=== PATIENT | male | born 1970 | race Caucasian/White ===

== ENCOUNTER 2021-04-14 17:38 | Inpatient (IN) | payer MEDICARE, MEDICAID, SELFPAY ==
[2021-04-14 18:00] VITALS: BP 141/98; PULSE 86; RESP 16; TEMP 36.2; O2SAT 97
[2021-04-14 20:12] VITALS: BMI 26.6
[2021-04-14] MEDS: Gabapentin 300 MG CAPSULE PO (20:21)
[2021-04-14] MEDS: LORazepam 1 MG TABLET 2 MG PO (20:21)
--- NOTE | 2021-04-14 21:12 | PC.ADMIT ---
PT is a 51 y.o. malian speaking male admitted to the unit on a conditional voluntary basis from [facility] ED. PT arrived to [facility] after contemplating suicide by way of gun. PT was recently discharged from [facility] for unknown reasons, began to binge drink and doesn't remember how he got to [facility]. PT is an everyday drinker of 10+ beverages daily of beer and vodka. PT uses marijuana. TOX screen (+) for marijuana, neg for others, COVID swab (-). PT recent suicidal thoughts stem from recent homelessness and alcoholism and minimal support system. PT denies SI/HI at this time as well as AH/VH. Legal paperwork signed. VS stable @ this time, no acute distress, respirations even and unlabored. Awaiting orders.
[2021-04-14] MEDS: LORazepam 1 MG TABLET PO (22:56)
[2021-04-14] MEDS: Topiramate 100 MG TABLET 200 MG PO (22:56)
[2021-04-14] MEDS: Nicotine Polacrilex 2 MG GUM 4 MG BUCCAL (22:57)
[2021-04-15 06:00] VITALS: BP 119/80; PULSE 53; RESP 16; TEMP 35.9; O2SAT 99
[2021-04-15] MEDS: Lacosamide 100 MG TABLET 200 MG PO ×2 (09:04→20:39)
[2021-04-15] MEDS: Gabapentin 300 MG CAPSULE PO ×3 (09:04→20:39)
[2021-04-15] MEDS: LORazepam 1 MG TABLET PO ×3 (09:04→20:39)
[2021-04-15] MEDS: Topiramate 100 MG TABLET 200 MG PO ×2 (09:05→20:39)
[2021-04-15] MEDS: Escitalopram Oxalate 5 MG TABLET PO (09:05)
[2021-04-15] MEDS: Omeprazole 40 MG CAPSULE.DR PO (09:05)
[2021-04-15] MEDS: Acetaminophen 325 MG TABLET 650 MG PO (10:23)
--- NOTE | 2021-04-15 10:43 | HO.PSYADMNOT ---
HPI Chief Complaint: depressive disorder Sources of Information: patient interviewed, chart reviewed and crisis/core team assessment reviewed HPI Subjective Notes: Padilla Warning and Conditional Voluntary Narrative: Pt is a 51yo male with hx of deperssion, anxiety and alcohol dependence who presents for worsening depression and in a moment of hopelessness, suicidal ideation. Pt reports depression but says SI has resolved. He reports no hx of self harm. Patient reports that for the past several months he has been quite depressed stuck in this cycle of alcohol addiction. He recently went to detox at [facility] and was there for a week; however 1 week ago he got into a verbal altercation with another peer and was asked to leave. The past week patient has been drinking alcohol consistently, at least 15 or more drinks per day which is his usual. He was feeling guilty and embarrassed for his chronic alcohol abuse and ashamed since his father was disappointed in him. Patient said in a moment of despair he had the thought that he does not want to be here anymore; he had his medications Hand[facility] and looked at them and briefly thought about overdosing, however he did not attempt and says he was never really close to doing so. Patient says the comment about the gun and shooting himself was just off a cough and Daniels and just 1 of those things you say. He denies any thoughts at all about taking his life. 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 Currently patient feels depressed. He says he loves drinking and does not want to quit, but he knows that he has to as it is taking an extreme toll on his body and he is getting tired of being homeless and bouncing around. Patient says that he has been taking his medications regularly including Lamictal and wants to continue with them. He agrees to increasing escitalopram to 10 mg. Patient said naltrexone has not been helpful at all and curbing his cravings. Boiler Mechanic discussed disulfiram with patient who is ambivalent but will think about it. Past Psychiatric History: Patient said he was psychiatrically admitted about 6-8 years ago but is not clear on the circumstances Medical Evaluation Reviewed: Hospitalist Abdelrahman Pending [facility] Medical History (Updated 04/15/21 @ 17:24 by Philip Galarza MD) Alcohol dependence Chronic post-traumatic stress disorder (PTSD) GERD (gastroesophageal reflux disease) MDD (major depressive disorder), recurrent episode, moderate MDD (major depressive disorder), recurrent episode, severe Seizure disorder Family History: Mother substance abuse history Mother with antisocial tendencies; sold both cocaine and cannabis and talk her son to do so Social History: Patient graduated high school; has a degree from a [employer] school and has worked in the industry in the past. Patient is closest to his father who is supportive Substance History: History of cocaine and alcohol abuse starting back in his teenage years. Patient currently only abuses alcohol and no longer uses cocaine. He says he drinks starting as soon as he wakes up in the morning and drinks 15 or more drinks per day; had history of seizure withdrawals Trauma History: Patient has history of trauma; did not discuss Diagnostics Vital Signs (24Hr): Vital Signs - 24 hr 04/14/21 18:00 04/15/21 06:00 Temperature 97.1 F 96.6 F L Pulse Rate 86 53 Respiratory Rate 16 16 Blood Pressure 141/98 H 119/80 Pulse Oximetry 97 99 Body Mass Index 26.6 Labs Results: 04/15/21 15:51 04/15/21 15:51 Meds/Allergies Meds Home Medications Acetaminophen (Acetaminophen 325 Mg Tablet) 650 mg PO Q6H PRN PRN Reason: Headache/Pain Mild Scale (1-3) Last Admin: 04/15/21 10:23 Dose: 650 mg Documented by: Al Hydroxide/Mg Hydroxide (Magnesium Hydrox/Alum Hydrox 30 Ml Oral.Susp) 30 ml PO Q6H PRN PRN Reason: Heartburn/Nausea Escitalopram Oxalate (Escitalopram Oxalate 10 Mg Tablet) 10 mg PO DAILY [facility] Folic Acid (Folic Acid 1 Mg Tablet) 1 mg PO DAILY [facility] Gabapentin (Gabapentin 300 Mg Capsule) 300 mg PO TID [facility] Last Admin: 04/15/21 16:21 Dose: 300 mg Documented by: Lacosamide (Lacosamide 100 Mg Tablet) 200 mg PO BID [facility] Last Admin: 04/15/21 09:04 Dose: 200 mg Documented by: Lamotrigine (Lamotrigine 100 Mg Tablet) 200 mg PO DAILY [facility] Lorazepam (Lorazepam 1 Mg Tablet) 1 mg PO TID [facility] Last Admin: 04/15/21 16:20 Dose: 1 mg Documented by: Lorazepam (Lorazepam 1 Mg Tablet) 2 mg PO Q2H PRN PRN Reason: mod to severe etoh withdrawal Last Admin: 04/15/21 13:58 Dose: 2 mg Documented by: Lorazepam (Lorazepam 1 Mg Tablet) 1 mg PO Q2H PRN PRN Reason: mild to mod etoh withdrawal Magnesium Hydroxide (Milk Of Magnesia 30 Ml Oral.Susp) 30 ml PO DAILY PRN PRN Reason: Constipation Nicotine (Nicotine 21 Mg Patch.Td24) 21 mg TRANSDERMA DAILY PRN PRN Reason: smoking cessation Nicotine Polacrilex (Nicotine Polacrilex 2 Mg Gum) 4 mg BUCCAL Q2H PRN PRN Reason: Nicotine Cravings Last Admin: 04/14/21 22:57 Dose: 4 mg Documented by: Omeprazole (Omeprazole 40 Mg Capsule.Dr) 40 mg PO DAILY@0630 [facility] Last Admin: 04/15/21 09:05 Dose: 40 mg Documented by: Thiamine HCl (Thiamine Hcl 200 Mg/2 Ml Vial) 100 mg IM DAILY [facility] Stop: 04/17/21 23:59 Thiamine HCl (Thiamine Hcl 100 Mg Tablet) 100 mg PO DAILY [facility] Topiramate (Topiramate 100 Mg Tablet) 200 mg PO BID [facility] Last Admin: 04/15/21 09:05 Dose: 200 mg Documented by: Trazodone HCl (Trazodone Hcl 50 Mg Tablet) 50 mg PO BEDTIME PRN PRN Reason: Insomnia Allergies Allergies Allergy/AdvReac Type Severity Reaction Status Date / Time levetiracetam [From [facility]] AdvReac Severe psychosis Unverified 04/14/21 20:47 Mental Status Exam Mental Status Exam Narrative: Pt is alert and oriented; behavior is cooperative, friendly and calm; patient is not in distress; dressed in hospital gown, scruffy and unkempt; mood is described as depressed and affect congruent; eye contact downcast; Speech is verbose, but normal rate, volume and prosody and not pressured; psychomotor retardation present; thought process is quite circumstantial but otherwise goal oriented; Thought content is on telling his life store; pt verbose but pertinent to relevant topics and without any delusional content, paranoid ideations or grandiosity; denies any SI/HI. There is no evidence of perceptual disturbance. Patients insight and judgment appear impaired. Assessment & Plan Assessment & Plan (1) Alcohol dependence: Status: Acute Code(s): F10.20 - Alcohol dependence, uncomplicated (2) MDD (major depressive disorder), recurrent episode, moderate: Status: Acute Code(s): F33.1 - Major depressive disorder, recurrent, moderate (3) Seizure disorder: Status: Acute Code(s): G40.909 - Epilepsy, unspecified, not intractable, without status epilepticus Assessment and Plan: IMPRESSION: Pt is a 51yo male with hx of depression, anxiety and alcohol dependence who presents for worsening depression and in a moment of hopelessness, suicidal ideation. Pt reports depression but says SI has resolved. He reports no hx of self harm. Patient has been drinking daily for decades with 1 or 2 weeks of sobriety in between long periods of abuse. Patient has history of childhood trauma that was not discussed; patient reports also being bullied in high school. Patient's mother had antisocial traits and ran a fairly large cocaine and cannabis business in the and taught her son to perk here and distribute these drugs. Could not get adequate history to assess for bipolar disorder given long history of daily substance abuse. Patient also did not discuss history of trauma and so it is unclear if he has symptoms of PTSD. Patient currently reports depression with diminished interest, guilty feelings, low energy, poor concentration and brief SI. That said he does not see himself as 1 who is overly depressed. Will treat patient for alcohol withdrawal. Patient is considering disulfiram; will not restart naltrexone since patient says it is not very helpful. He was also not taking atorvastatin. Will however continue both anti epileptic medications as patient said he was taking them regularly. PLAN: Patient on CV Q 15 minutes checks for safety Patient on CIWA with Ativan a gabapentin taper Will increase escitalopram to 10 mg for ongoing depression/anxiety Will continue Lamictal which patient says he takes regularly for seizure disorder; internal communications writer reviewed risks/side effects of this medication to which patient understood A continue other home meds for now Reason for continued inpatient stay Substantial Risk for: rapid decompensation
[2021-04-15] MEDS: LORazepam 1 MG TABLET 2 MG PO (13:58)
[2021-04-15 15:58] LABS: MANUAL DIFF FLAG NO
[2021-04-15 16:01] LABS: Eosinophils Absolute Auto 0.1 X10*3/uL (0.0-0.4); Eosinophils Percent Auto 3.3 % (0-4); Hematocrit 38.1 % (42-52); Hemoglobin 12.8 g/dl (14.0-18.0); Imm Gran Abs Auto 0.01 X10*3/uL (0.00-0.03); Imm Gran Pct Auto 0.3 % (0.0-0.4); Lymphocytes Absolute Auto 0.8 X10*3/uL (1.2-4.9); Lymphocytes Percent Auto 20.4 % (20-40); Mean Corpuscular HGB Conc 33.6 g/dl (31.0-36.0); Mean Corpuscular Hemoglobin 32.1 pg (27.0-33.0); Mean Corpuscular Volume 95.5 fL (80-98); Monocytes Absolute Auto 0.6 X10*3/uL (0.1-1.2); Monocytes Percent Auto 15.8 % (2-11); Neutrophils Absolute Auto 2.3 X10*3/uL (2.0-8.3); Neutrophils Percent Auto 59.2 % (45-73); Platelet Count 294 X10*3/uL (160-400); Red Blood Count 3.99 X10*6/uL (4.60-5.80); Red Cell Distribution Width 14.2 % (11.0-16.0); White Blood Count 3.9 X10*3/uL (4.8-10.8)
[2021-04-15 16:18] LABS: Blood Urea Nitrogen 15 mg/dL (9-16); Creatinine Clr Calc Pharmacy 79.9; Estimated Glomerular Filt Rate > 60
[2021-04-15 16:20] LABS: Alanine Aminotransferase 10 U/L (0-40); Albumin Level 4.1 g/dL (3.5-5.0); Alkaline Phosphatase 64 U/L (39-117); Anion Gap 12 (12-20); Aspartate Amino Transferase 15 U/L (5-37); Bilirubin Direct < 0.2 mg/dL (0.0-0.5); Bilirubin Total 0.4 mg/dL (0.0-1.0); Carbon Dioxide 21 mmol/L (22-29); Chloride 109 mmol/L (96-108); Potassium 4.1 mmol/L (3.3-5.1); Sodium 138 mmol/L (135-145)
[2021-04-15] MEDS: lamoTRIgine 100 MG TABLET 200 MG PO (16:20)
[2021-04-15] MEDS: Thiamine HCL 200 MG/2 ML VIAL 100 MG IM (16:20)
[2021-04-15] MEDS: Folic Acid 1 MG TABLET PO (16:21)
--- NOTE | 2021-04-15 16:29 | HO.HSGERICON ---
History of Present Illness Data of Consult Service Date: 04/15/21 Primary Care Provider: Alesia Lundberg NP HPI Reason for consult: GERD, seizure disorder 51M admitted to inpatient psychiatry for depression with suicidal ideation. Patient has history of seizure disorder, questionable of only due to alcohol withdrawal or independent seizure disorder. He is currently on Vimpat, lamotrigine, Topamax. He also has a history of reflux treated with omeprazole. Review of Systems Review of Systems: Yes all other systems are reviewed and are negative Cardiovascular: Cardiovascular: Reports no additional cardiovascular complaints Respiratory: Respiratory: Reports no additional respiratory complaints [facility] Medical History (Updated 04/15/21 @ 16:32 by James Taylor MD) Alcohol dependence Chronic post-traumatic stress disorder (PTSD) GERD (gastroesophageal reflux disease) MDD (major depressive disorder), recurrent episode, severe Seizure disorder Pertinent family history: father, mother denies cad Social History Housing: Homeless Do you presently have visiting nurse or other home services: No Patient Tobacco Use Status: Current everyday Tobacco user Tobacco use type: Cigarette Cigarettes Per Day: 1 Years Smoked: 30 Smoked in Last 30 Days: Yes e-Cigarette/Vaping Use: Never Used Patient Interested in Nicotine Replacement: Yes Patient Given Instructions on How to Stop Smoking: Yes Date Education Initiated: 04/14/21 Second Hand Smoke Exposure: Yes Use of substances other than those prescribed or required for medical reasons: Yes Substance Use Type: Marijuana Substance Use Frequency: Weekly Last Used Substance: Hours (ago) Currently Displaying Signs/Symptoms of Drug Intoxication Withdrawal: No Any prior treatment program specific to substance use: No Have you been hit, kicked, punched, or otherwise hurt by someone within the past year? If so, by whom?: No Do you feel safe in your current relationship?: No Is there a partner from a previous relationship who is making you feel unsafe now?: No Are you made to feel afraid or neglected: No Advance Directives: No Advance Directives Information Provided: No Advance Directives on File: No Do you have thoughts of harming others: None Do you have a plan to hurt others: No Plan Recently lost weight without trying: No Nutrition Risks: No Nutritional Risk Poor oral hygiene: Yes service: No Sexual orientation: Straight/Heterosexual Meds Allergies Allergy/AdvReac Type Severity Reaction Status Date / Time levetiracetam [From [facility]] AdvReac Severe psychosis Unverified 04/14/21 20:47 Active Medications: Current Medications Acetaminophen (Acetaminophen 325 Mg Tablet) 650 mg PO Q6H PRN PRN Reason: Headache/Pain Mild Scale (1-3) Last Admin: 04/15/21 10:23 Dose: 650 mg Documented by: Al Hydroxide/Mg Hydroxide (Magnesium Hydrox/Alum Hydrox 30 Ml Oral.Susp) 30 ml PO Q6H PRN PRN Reason: Heartburn/Nausea Escitalopram Oxalate (Escitalopram Oxalate 10 Mg Tablet) 10 mg PO DAILY [facility] Folic Acid (Folic Acid 1 Mg Tablet) 1 mg PO DAILY [facility] Gabapentin (Gabapentin 300 Mg Capsule) 300 mg PO TID [facility] Last Admin: 04/15/21 16:21 Dose: 300 mg Documented by: Lacosamide (Lacosamide 100 Mg Tablet) 200 mg PO BID [facility] Last Admin: 04/15/21 09:04 Dose: 200 mg Documented by: Lamotrigine (Lamotrigine 100 Mg Tablet) 200 mg PO DAILY [facility] Lorazepam (Lorazepam 1 Mg Tablet) 1 mg PO TID [facility] Last Admin: 04/15/21 16:20 Dose: 1 mg Documented by: Lorazepam (Lorazepam 1 Mg Tablet) 2 mg PO Q2H PRN PRN Reason: mod to severe etoh withdrawal Last Admin: 04/15/21 13:58 Dose: 2 mg Documented by: Lorazepam (Lorazepam 1 Mg Tablet) 1 mg PO Q2H PRN PRN Reason: mild to mod etoh withdrawal Magnesium Hydroxide (Milk Of Magnesia 30 Ml Oral.Susp) 30 ml PO DAILY PRN PRN Reason: Constipation Nicotine (Nicotine 21 Mg Patch.Td24) 21 mg TRANSDERMA DAILY PRN PRN Reason: smoking cessation Nicotine Polacrilex (Nicotine Polacrilex 2 Mg Gum) 4 mg BUCCAL Q2H PRN PRN Reason: Nicotine Cravings Last Admin: 04/14/21 22:57 Dose: 4 mg Documented by: Omeprazole (Omeprazole 40 Mg Capsule.Dr) 40 mg PO DAILY@0630 [facility] Last Admin: 04/15/21 09:05 Dose: 40 mg Documented by: Thiamine HCl (Thiamine Hcl 200 Mg/2 Ml Vial) 100 mg IM DAILY [facility] Stop: 04/17/21 23:59 Thiamine HCl (Thiamine Hcl 100 Mg Tablet) 100 mg PO DAILY [facility] Topiramate (Topiramate 100 Mg Tablet) 200 mg PO BID [facility] Last Admin: 04/15/21 09:05 Dose: 200 mg Documented by: Trazodone HCl (Trazodone Hcl 50 Mg Tablet) 50 mg PO BEDTIME PRN PRN Reason: Insomnia Home Medications Medication Instructions Recorded Confirmed Last Taken Type escitalopram oxalate 5 mg tablet 5 mg PO DAILY 04/14/21 04/14/21 Unknown History lacosamide 200 mg tablet (Vimpat) 200 mg PO BID 04/14/21 04/14/21 Unknown History lamotrigine 200 mg tablet 1 tab PO BID 04/14/21 04/14/21 Unknown History omeprazole 40 mg capsule,delayed 40 mg PO DAILY 04/14/21 04/14/21 Unknown History release topiramate 200 mg tablet 1 tab PO BID 04/14/21 04/14/21 Unknown History Results Labs CBC and Chem 7: 04/15/21 15:51 04/15/21 15:51 Labs: Laboratory Results - last 24 hr 04/15/21 04/15/21 04/15/21 15:50 15:51 15:51 MCV 95.5 MCH 32.1 MCHC 33.6 RDW 14.2 Plt Count 294 MPV 9.0 L Immature Gran % (Auto) 0.3 Neut % (Auto) 59.2 Lymph % (Auto) 20.4 [place] % (Auto) 15.8 H Eos % (Auto) 3.3 Baso % (Auto) 1.0 Lymph # (Auto) 0.8 L [place] # (Auto) 0.6 Eos # (Auto) 0.1 Baso # (Auto) 0.0 Abs Immat Gran (auto) 0.01 Absolute Neuts (auto) 2.3 Absolute Nucleated RBC 0.000 Nucleated RBC % (auto) 0.0 Anion Gap 12 Estim Creat Clear Calc 79.9 Estimated GFR > 60 Total Bilirubin 0.4 Direct Bilirubin < 0.2 AST 15 ALT 10 Alkaline Phosphatase 64 Total Protein 7.0 Albumin 4.1 Assessment and Plan (1) GERD (gastroesophageal reflux disease): Status: Acute (2) Seizure disorder: Status: Acute 51M admitted to inpatient psychiatry for depression Seizure disorder Question independent versus due to her withdrawal, continue home antiepileptics Reflux Continue omeprazole Alcohol dependence Monitor for withdrawal Physical Exam Vital Signs: Last Vital Signs Temp 96.6 F L 04/15/21 06:00 Pulse 53 04/15/21 06:00 Resp 16 04/15/21 06:00 BP 119/80 04/15/21 06:00 Pulse Ox 99 04/15/21 06:00 Body Mass Index 26.6 General: AO X 3, no acute distress Resp: CTA bilateral, no accessory muscles used CVS: S1,S2,RRR GI: soft, non tender, non distended Neuro: motor grossly intact, alert Neuro Cranial nerves: Yes CN's II-XII intact bilaterally
[2021-04-15 18:00] VITALS: BP 138/78; PULSE 80; RESP 18; TEMP 36.7; O2SAT 99
[2021-04-16] MEDS: LORazepam 1 MG TABLET 2 MG PO ×2 (01:40→16:28)
[2021-04-16] MEDS: traZODone HCL 50 MG TABLET PO (01:40)
[2021-04-16] MEDS: Omeprazole 40 MG CAPSULE.DR PO (05:47)
[2021-04-16] MEDS: Gabapentin 300 MG CAPSULE PO ×3 (08:53→20:43)
[2021-04-16] MEDS: lamoTRIgine 100 MG TABLET 200 MG PO (08:54)
[2021-04-16] MEDS: Topiramate 100 MG TABLET 200 MG PO ×2 (08:56→20:43)
[2021-04-16] MEDS: Escitalopram Oxalate 10 MG TABLET PO (08:56)
[2021-04-16] MEDS: Folic Acid 1 MG TABLET PO (08:56)
[2021-04-16] MEDS: LORazepam 1 MG TABLET PO ×4 (08:56→20:43)
[2021-04-16] MEDS: Thiamine HCL 200 MG/2 ML VIAL 100 MG IM (08:57)
[2021-04-16] MEDS: Lacosamide 100 MG TABLET 200 MG PO ×2 (09:01→20:43)
--- NOTE | 2021-04-16 10:15 | HO.PSYCHPN ---
Subjective Subjective Date of Service: 04/16/21 Reason For Visit: depressive disorder Interim History: pt seen on 04/16 pt reports his mood is better; no SI. He says he's still feeling some w/drawal but that medication (ativan/gabapentin working). Pt says eating and sleeping well. He is still ambivalent about Disulfiram. Pt talks about love of guitare and wishes there was one on the unit. 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 Pt is looking looking for places to stay on discharge. Pt says he wrote a song and shares a few verses with life underwriter. Mental Status Exam Mental Status Exam Narrative: Pt is alert and oriented; behavior is cooperative, friendly and calm; patient is not in distress; dressed in hospital gown, scruffy and unkempt; mood is described as better and affect congruent, bright; eye contact appropriate; Speech is verbose, but normal rate, volume and prosody and not pressured; no psychomotor retardation; thought process is quite circumstantial but otherwise goal oriented; Thought content is on telling stories; pt verbose but pertinent to relevant topics and without any delusional content, paranoid ideations or grandiosity; denies any SI/HI. There is no evidence of perceptual disturbance.? Patients insight and judgment appear intact. Diagnostics Vital Signs (24Hr): Vital Signs - 24 hr 04/15/21 18:00 Temperature 98.0 F Pulse Rate 80 Respiratory Rate 18 Blood Pressure 138/78 Pulse Oximetry 99 Body Mass Index 26.6 Labs Results: 04/15/21 15:51 04/15/21 15:51 Labs: Laboratory Results - last 48 hr 04/15/21 04/15/21 04/15/21 15:50 15:51 15:51 WBC 3.9 L RBC 3.99 L Hgb 12.8 L Hct 38.1 L MCV 95.5 MCH 32.1 MCHC 33.6 RDW 14.2 Plt Count 294 MPV 9.0 L Immature Gran % (Auto) 0.3 Neut % (Auto) 59.2 Lymph % (Auto) 20.4 [place] % (Auto) 15.8 H Eos % (Auto) 3.3 Baso % (Auto) 1.0 Lymph # (Auto) 0.8 L [place] # (Auto) 0.6 Eos # (Auto) 0.1 Baso # (Auto) 0.0 Abs Immat Gran (auto) 0.01 Absolute Neuts (auto) 2.3 Absolute Nucleated RBC 0.000 Nucleated RBC % (auto) 0.0 Sodium 138 Potassium 4.1 Chloride 109 H Carbon Dioxide 21 L Anion Gap 12 BUN 15 Creatinine 1.07 Estim Creat Clear Calc 79.9 Estimated GFR > 60 Total Bilirubin 0.4 Direct Bilirubin < 0.2 AST 15 ALT 10 Alkaline Phosphatase 64 Total Protein 7.0 Albumin 4.1 Medications Medications Current Medications Acetaminophen (Acetaminophen 325 Mg Tablet) 650 mg PO Q6H PRN PRN Reason: Headache/Pain Mild Scale (1-3) Last Admin: 04/15/21 10:23 Dose: 650 mg Documented by: Al Hydroxide/Mg Hydroxide (Magnesium Hydrox/Alum Hydrox 30 Ml Oral.Susp) 30 ml PO Q6H PRN PRN Reason: Heartburn/Nausea Escitalopram Oxalate (Escitalopram Oxalate 10 Mg Tablet) 10 mg PO DAILY [facility] Last Admin: 04/16/21 08:56 Dose: 10 mg Documented by: Folic Acid (Folic Acid 1 Mg Tablet) 1 mg PO DAILY [facility] Last Admin: 04/16/21 08:56 Dose: 1 mg Documented by: Gabapentin (Gabapentin 300 Mg Capsule) 300 mg PO TID [facility] Last Admin: 04/16/21 08:53 Dose: 300 mg Documented by: Lacosamide (Lacosamide 100 Mg Tablet) 200 mg PO BID [facility] Last Admin: 04/16/21 09:01 Dose: 200 mg Documented by: Lamotrigine (Lamotrigine 100 Mg Tablet) 200 mg PO DAILY [facility] Last Admin: 04/16/21 08:54 Dose: 200 mg Documented by: Lorazepam (Lorazepam 1 Mg Tablet) 1 mg PO TID [facility] Last Admin: 04/16/21 08:56 Dose: 1 mg Documented by: Lorazepam (Lorazepam 1 Mg Tablet) 2 mg PO Q2H PRN PRN Reason: mod to severe etoh withdrawal Last Admin: 04/16/21 01:40 Dose: 2 mg Documented by: Lorazepam (Lorazepam 1 Mg Tablet) 1 mg PO Q2H PRN PRN Reason: mild to mod etoh withdrawal Magnesium Hydroxide (Milk Of Magnesia 30 Ml Oral.Susp) 30 ml PO DAILY PRN PRN Reason: Constipation Nicotine (Nicotine 21 Mg Patch.Td24) 21 mg TRANSDERMA DAILY PRN PRN Reason: smoking cessation Nicotine Polacrilex (Nicotine Polacrilex 2 Mg Gum) 4 mg BUCCAL Q2H PRN PRN Reason: Nicotine Cravings Last Admin: 04/14/21 22:57 Dose: 4 mg Documented by: Omeprazole (Omeprazole 40 Mg Capsule.) 40 mg PO DAILY@0630 [facility] Last Admin: 04/16/21 05:47 Dose: 40 mg Documented by: Thiamine HCl (Thiamine Hcl 200 Mg/2 Ml Vial) 100 mg IM DAILY [facility] Stop: 04/17/21 23:59 Last Admin: 04/16/21 08:57 Dose: 100 mg Documented by: Thiamine HCl (Thiamine Hcl 100 Mg Tablet) 100 mg PO DAILY [facility] Topiramate (Topiramate 100 Mg Tablet) 200 mg PO BID [facility] Last Admin: 04/16/21 08:56 Dose: 200 mg Documented by: Trazodone HCl (Trazodone Hcl 50 Mg Tablet) 50 mg PO BEDTIME PRN PRN Reason: Insomnia Last Admin: 04/16/21 01:40 Dose: 50 mg Documented by: Allergies Allergies Allergy/AdvReac Type Severity Reaction Status Date / Time levetiracetam [From [facility]] AdvReac Severe psychosis Unverified 04/14/21 20:47 Assessment & Plan Assessment & Plan (1) Alcohol dependence: Status: Acute Code(s): F10.20 - Alcohol dependence, uncomplicated (2) MDD (major depressive disorder), recurrent episode, moderate: Status: Acute Code(s): F33.1 - Major depressive disorder, recurrent, moderate (3) Seizure disorder: Status: Chronic Code(s): G40.909 - Epilepsy, unspecified, not intractable, without status epilepticus Assessment and Plan: IMPRESSION: Pt is a 51yo male with hx of depression, anxiety and alcohol dependence who presents for worsening depression and in a moment of hopelessness, suicidal ideation. Pt reports depression but says SI has resolved. He reports no hx of self harm. Patient has been drinking daily for decades with 1 or 2 weeks of sobriety in between long periods of abuse. Patient has history of childhood trauma that was not discussed; patient reports also being bullied in high school. Patient's mother had antisocial traits and ran a fairly large cocaine and cannabis business in the and taught her son to perk here and distribute these drugs. Could not get adequate history to assess for bipolar disorder given long history of daily substance abuse. Patient also did not discuss history of trauma and so it is unclear if he has symptoms of PTSD. Patient currently reports depression with diminished interest, guilty feelings, low energy, poor concentration and brief SI. That said he does not see himself as 1 who is overly depressed. Will treat patient for alcohol withdrawal. Patient is considering disulfiram; will not restart naltrexone since patient says it is not very helpful. He was also not taking atorvastatin. Will however continue both anti epileptic medications as patient said he was taking them regularly. pt stabilizing; no si PLAN: Patient on CV Q 15 minutes checks for safety Patient on CIWA with Ativan a gabapentin taper increased escitalopram to 10 mg for ongoing depression/anxiety Will continue Lamictal which patient says he takes regularly for seizure disorder; life underwriter reviewed risks/side effects of this medication to which patient understood A continue other home meds for now Greater than 50% of the session was spent on counseling and/or coordination of care Reason for contiued inpatient stay Substantial Risk for: stable for discharge
[2021-04-16] MEDS: Acetaminophen 325 MG TABLET 650 MG PO (11:27)
[2021-04-16 18:00] VITALS: BP 123/87; PULSE 86; TEMP 36.4
[2021-04-17 06:00] VITALS: BP 130/83; PULSE 70; RESP 16; TEMP 35.3; O2SAT 100
[2021-04-17] MEDS: Omeprazole 40 MG CAPSULE.DR PO (06:15)
[2021-04-17] MEDS: Lacosamide 100 MG TABLET 200 MG PO ×2 (08:23→21:03)
[2021-04-17] MEDS: LORazepam 1 MG TABLET PO ×3 (08:25→21:03)
[2021-04-17] MEDS: lamoTRIgine 100 MG TABLET 200 MG PO (08:25)
[2021-04-17] MEDS: Topiramate 100 MG TABLET 200 MG PO ×2 (08:25→21:03)
[2021-04-17] MEDS: Folic Acid 1 MG TABLET PO (08:25)
[2021-04-17] MEDS: Escitalopram Oxalate 10 MG TABLET PO (08:26)
[2021-04-17] MEDS: Gabapentin 300 MG CAPSULE PO ×3 (08:26→21:03)
[2021-04-17] MEDS: Thiamine HCL 200 MG/2 ML VIAL 100 MG IM (09:58)
[2021-04-17] MEDS: LORazepam 1 MG TABLET 2 MG PO (10:19)
[2021-04-17] MEDS: QUEtiapine Fumarate 50 MG TABLET PO (12:55)
--- NOTE | 2021-04-17 14:14 | PC.NURSE ---
pt intrusive and very directive and speaking negatively about a female pt whe was right infront of him this afternoon. he asked for the headphones and was having difficulty connecting the unit phone. after 10 minutes i told him we would have to try later as i couldnt stand there much longer with him as i had to tend to other things. he began to shout and scream at me. swearing very hostile and angry walking aw2ay and slammed the kitchen door shut. he was told he lost privileges for the nexty top of the hour phone use as he was shouting and swearing at me. hostile.
--- NOTE | 2021-04-17 15:26 | PC.NURSE ---
While meeting with Dr. Galarza pt layed on floor with extremities pulled toward the center of his body and shook for approximately 2 minutes. PT was able to talk with throughout episode. PT returned to baseline immediately after. VS 133/94 HR 88 O2 98 on room air. No further orders at this time.
[2021-04-17] MEDS: traZODone HCL 50 MG TABLET PO (21:03)
--- NOTE | 2021-04-17 22:52 | HO.PSYCHPN ---
Subjective Subjective Date of Service: 04/17/21 Reason For Visit: depressive disorder Interim History: Patient irritable. However he was irritable towards a female peer whom he said was hogging the headphones. At one point he went into this females room and loudly yelled at her for holding on to the headphones too long and then said he would make sure she did not get the remote control for the television. Later patient was holding the TV remote and refused to give it to staff although he eventually let it go.? Later in the day patient asked to see the screen writer and said he was about to have a seizure. Finish Remover and patient walked to his room and patient proceeded to lie on the bed, eyes closed, legs straight and arms at his side and then started to shake his arms. While shaking, Patient addressed this screen writer and said ?my arms are shaking pretty bad aren't they?? Finish Remover agreed they were shaking. Patient then lifted his left leg in the air and started to swing it over towards his right side until he tipped over and fell out of the? bed however being very careful to protect his head with his arms so as not to hit anything; he did bump his back against the desk and grimaced in doing so. He lay on the floor and continued to shake his whole body and curl his hands up tightly. While shaking, Nurse was also present who asked patient to lift his head up so she could put a pillow under his head. While continuing to shake and hold his hands tightly, patient lifted his head a first time getting the pillow partially under his head, and then lifted it a second time at her request to get it still further under; he lay his head on the pillow and continued to shake. This went on for about a minute or so. He then set up, opened his eyes and said ?where am I? How did I end up on the floor? ?? he asked for screen writer and nurse to look at his back saying it hurt; there was no bruising or any redness or any other signs of trauma. He asked for something for the pain and screen writer offered him Tylenol or ibuprofen. Patient said ?oh that's not going to be enough? Can you give me something with more kick? You can look at my chart doc I have no history of opioid addiction. Can you give me something with more kick?? Finish Remover agreed he did not see opioid abuse in hx however explained to patient that tylenol/ibuprofen would be enough. Patient then said in light of his seizure could please remain on the unit for the night instead of being discharged (somehow patient thought he might be discharged today though nothing at all had been said about this). Finish Remover said it would be fine for him to remain the night. Patient said ?don't worry I'm not trying to be a squatter.. I've been making calls to find a place to stay.?? Diagnostics Vital Signs (24Hr): Vital Signs - 24 hr 04/17/21 06:00 Temperature 95.6 F L Pulse Rate 70 Respiratory Rate 16 Blood Pressure 130/83 Pulse Oximetry 100 Body Mass Index 26.6 Labs Results: 04/15/21 15:51 04/15/21 15:51 Medications Medications Current Medications Acetaminophen (Acetaminophen 325 Mg Tablet) 650 mg PO Q6H PRN PRN Reason: Headache/Pain Mild Scale (1-3) Last Admin: 04/16/21 11:27 Dose: 650 mg Documented by: Al Hydroxide/Mg Hydroxide (Magnesium Hydrox/Alum Hydrox 30 Ml Oral.Susp) 30 ml PO Q6H PRN PRN Reason: Heartburn/Nausea Escitalopram Oxalate (Escitalopram Oxalate 10 Mg Tablet) 10 mg PO DAILY [facility] Last Admin: 04/17/21 08:26 Dose: 10 mg Documented by: Folic Acid (Folic Acid 1 Mg Tablet) 1 mg PO DAILY [facility] Last Admin: 04/17/21 08:25 Dose: 1 mg Documented by: Gabapentin (Gabapentin 300 Mg Capsule) 300 mg PO TID [facility] Stop: 04/17/21 23:59 Last Admin: 04/17/21 21:03 Dose: 300 mg Documented by: Gabapentin (Gabapentin 300 Mg Capsule) 300 mg PO BID [facility] Lacosamide (Lacosamide 100 Mg Tablet) 200 mg PO BID [facility] Last Admin: 04/17/21 21:03 Dose: 200 mg Documented by: Lamotrigine (Lamotrigine 100 Mg Tablet) 200 mg PO DAILY [facility] Last Admin: 04/17/21 08:25 Dose: 200 mg Documented by: Lorazepam (Lorazepam 1 Mg Tablet) 1 mg PO TID [facility] Stop: 04/17/21 23:59 Last Admin: 04/17/21 21:03 Dose: 1 mg Documented by: Lorazepam (Lorazepam 1 Mg Tablet) 1 mg PO BID [facility] Stop: 04/18/21 23:59 Lorazepam (Lorazepam 1 Mg Tablet) 1 mg PO Q8H PRN PRN Reason: mild to mod etoh withdrawal Magnesium Hydroxide (Milk Of Magnesia 30 Ml Oral.Susp) 30 ml PO DAILY PRN PRN Reason: Constipation Nicotine (Nicotine 21 Mg Patch.Td24) 21 mg TRANSDERMA DAILY PRN PRN Reason: smoking cessation Nicotine Polacrilex (Nicotine Polacrilex 2 Mg Gum) 4 mg BUCCAL Q2H PRN PRN Reason: Nicotine Cravings Last Admin: 04/14/21 22:57 Dose: 4 mg Documented by: Omeprazole (Omeprazole 40 Mg Capsule.Dr) 40 mg PO DAILY@0630 [facility] Last Admin: 04/17/21 06:15 Dose: 40 mg Documented by: Thiamine HCl (Thiamine Hcl 200 Mg/2 Ml Vial) 100 mg IM DAILY [facility] Stop: 04/17/21 23:59 Last Admin: 04/17/21 09:58 Dose: 100 mg Documented by: Thiamine HCl (Thiamine Hcl 100 Mg Tablet) 100 mg PO DAILY [facility] Topiramate (Topiramate 100 Mg Tablet) 200 mg PO BID [facility] Last Admin: 04/17/21 21:03 Dose: 200 mg Documented by: Trazodone HCl (Trazodone Hcl 50 Mg Tablet) 50 mg PO BEDTIME PRN PRN Reason: Insomnia Last Admin: 04/17/21 21:03 Dose: 50 mg Documented by: Allergies Allergies Allergy/AdvReac Type Severity Reaction Status Date / Time levetiracetam [From [facility]] AdvReac Severe psychosis Unverified 04/14/21 20:47 Assessment & Plan Assessment & Plan (1) Alcohol dependence: Status: Acute Code(s): F10.20 - Alcohol dependence, uncomplicated (2) MDD (major depressive disorder), recurrent episode, moderate: Status: Acute Code(s): F33.1 - Major depressive disorder, recurrent, moderate (3) Seizure disorder: Status: Chronic Code(s): G40.909 - Epilepsy, unspecified, not intractable, without status epilepticus (4) Malingering: Status: Acute Code(s): Z76.5 - Malingerer [conscious simulation] Assessment and Plan: fabricated seizure for secondary gain Assessment and Plan: IMPRESSION: Pt is a 51yo male with hx of depression, anxiety and alcohol dependence who presents for worsening depression and in a moment of hopelessness, suicidal ideation. Pt reports depression but says SI has resolved. He reports no hx of self harm. Patient has been drinking daily for decades with 1 or 2 weeks of sobriety in between long periods of abuse. Patient has history of childhood trauma that was not discussed; patient reports also being bullied in high school. Patient's mother had antisocial traits and ran a fairly large cocaine and cannabis business in the and taught her son to perk here and distribute these drugs. Could not get adequate history to assess for bipolar disorder given long history of daily substance abuse. Patient also did not discuss history of trauma and so it is unclear if he has symptoms of PTSD. Patient currently reports depression with diminished interest, guilty feelings, low energy, poor concentration and brief SI. That said he does not see himself as 1 who is overly depressed. Will treat patient for alcohol withdrawal. Patient is considering disulfiram; will not restart naltrexone since patient says it is not very helpful. He was also not taking atorvastatin. Will however continue both anti epileptic medications as patient said he was taking them regularly. pt stabilizing; no si today pt faked a seizure in order to get either opioid pain medication or to help him stay on unit for another night. This was not a pseudo seizure but conscious and deliberate attempt for secondary gain. Pt may infact have a seizure disorder (though he knows very little about it and has only talked about it interms of withdrawal seizures), however this was not one of them. -pt denies SI; says depression resolved; PLAN: Patient on CV Q 15 minutes checks for safety dc CIWA Ativan a gabapentin taper increased escitalopram to 10 mg for ongoing depression/anxiety Will continue Lamictal which patient says he takes regularly for seizure disorder; screen writer reviewed risks/side effects of this medication to which patient understood A continue other home meds for now Greater than 50% of the session was spent on counseling and/or coordination of care Reason for contiued inpatient stay Substantial Risk for: stable for discharge
[2021-04-18] MEDS: traZODone HCL 50 MG TABLET PO ×2 (00:13→23:01)
[2021-04-18] MEDS: Omeprazole 40 MG CAPSULE.DR PO (06:14)
[2021-04-18] MEDS: Thiamine HCL 100 MG TABLET PO (09:50)
[2021-04-18] MEDS: lamoTRIgine 100 MG TABLET 200 MG PO (09:50)
[2021-04-18] MEDS: Escitalopram Oxalate 10 MG TABLET PO (09:50)
[2021-04-18] MEDS: Gabapentin 300 MG CAPSULE PO ×2 (09:50→20:11)
[2021-04-18] MEDS: Lacosamide 100 MG TABLET 200 MG PO ×2 (09:50→20:11)
[2021-04-18] MEDS: Folic Acid 1 MG TABLET PO (09:50)
[2021-04-18] MEDS: LORazepam 1 MG TABLET PO ×3 (09:50→23:01)
[2021-04-18] MEDS: Topiramate 100 MG TABLET 200 MG PO ×2 (09:50→20:11)
[2021-04-18] MEDS: Nicotine 21 MG PATCH.TD24 TRANSDERMA (09:56)
--- NOTE | 2021-04-18 15:01 | HO.PSYCHPN ---
Subjective Subjective Date of Service: 04/18/21 Reason For Visit: depressive disorder Interim History: Patient's mood is good; no SI at all. Patient is future oriented and talking about discharge and his options. 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 Patient shared that he has been disappointed in programs before and is very much leaning towards doing a tatum thing. He says AA is an absolute must and he will be attending regularly. He feels that his medications are working and wants to continue with them. Patient reports that his father is very supportive and will be able to come pick him up from the hospital. Patient says he is eager to get back to working and is excited about this perspective job. Patient thanked functional tester typewriters for help during this admission Mental Status Exam Mental Status Exam Narrative: ?Pt is alert and oriented; behavior is cooperative, friendly and calm; patient is not in distress; dressed in casual cloths, scruffy but with adequate hygiene; mood is described as good and affect congruent, bright; eye contact appropriate; Speech is verbose, but normal rate, volume and prosody and not pressured; no psychomotor retardation; thought process is quite circumstantial but otherwise goal oriented; Thought content is discharge plan on telling stories; no delusional content, paranoid ideations or grandiosity; denies any SI/HI. There is no evidence of perceptual disturbance.? Patients insight and judgment appear intact. Diagnostics Vital Signs (24Hr): Body Mass Index 26.6 Labs Results: 04/15/21 15:51 04/15/21 15:51 Medications Medications Current Medications Acetaminophen (Acetaminophen 325 Mg Tablet) 650 mg PO Q6H PRN PRN Reason: Headache/Pain Mild Scale (1-3) Last Admin: 04/16/21 11:27 Dose: 650 mg Documented by: Al Hydroxide/Mg Hydroxide (Magnesium Hydrox/Alum Hydrox 30 Ml Oral.Susp) 30 ml PO Q6H PRN PRN Reason: Heartburn/Nausea Escitalopram Oxalate (Escitalopram Oxalate 10 Mg Tablet) 10 mg PO DAILY [facility] Last Admin: 04/18/21 09:50 Dose: 10 mg Documented by: Folic Acid (Folic Acid 1 Mg Tablet) 1 mg PO DAILY [facility] Last Admin: 04/18/21 09:50 Dose: 1 mg Documented by: Gabapentin (Gabapentin 300 Mg Capsule) 300 mg PO BID [facility] Last Admin: 04/18/21 09:50 Dose: 300 mg Documented by: Lacosamide (Lacosamide 100 Mg Tablet) 200 mg PO BID [facility] Last Admin: 04/18/21 09:50 Dose: 200 mg Documented by: Lamotrigine (Lamotrigine 100 Mg Tablet) 200 mg PO DAILY [facility] Last Admin: 04/18/21 09:50 Dose: 200 mg Documented by: Lorazepam (Lorazepam 1 Mg Tablet) 1 mg PO BID [facility] Stop: 04/18/21 23:59 Last Admin: 04/18/21 09:50 Dose: 1 mg Documented by: Lorazepam (Lorazepam 1 Mg Tablet) 1 mg PO Q8H PRN PRN Reason: mild to mod etoh withdrawal Magnesium Hydroxide (Milk Of Magnesia 30 Ml Oral.Susp) 30 ml PO DAILY PRN PRN Reason: Constipation Nicotine (Nicotine 21 Mg Patch.Td24) 21 mg TRANSDERMA DAILY PRN PRN Reason: smoking cessation Last Admin: 04/18/21 09:56 Dose: 21 mg Documented by: Nicotine Polacrilex (Nicotine Polacrilex 2 Mg Gum) 4 mg BUCCAL Q2H PRN PRN Reason: Nicotine Cravings Last Admin: 04/14/21 22:57 Dose: 4 mg Documented by: Omeprazole (Omeprazole 40 Mg Capsule.Dr) 40 mg PO DAILY@0630 [facility] Last Admin: 04/18/21 06:14 Dose: 40 mg Documented by: Thiamine HCl (Thiamine Hcl 100 Mg Tablet) 100 mg PO DAILY [facility] Last Admin: 04/18/21 09:50 Dose: 100 mg Documented by: Topiramate (Topiramate 100 Mg Tablet) 200 mg PO BID [facility] Last Admin: 04/18/21 09:50 Dose: 200 mg Documented by: Trazodone HCl (Trazodone Hcl 50 Mg Tablet) 50 mg PO BEDTIME PRN PRN Reason: Insomnia Last Admin: 04/18/21 00:13 Dose: 50 mg Documented by: Allergies Allergies Allergy/AdvReac Type Severity Reaction Status Date / Time levetiracetam [From [facility]] AdvReac Severe psychosis Unverified 04/14/21 20:47 Assessment & Plan Assessment & Plan (1) Alcohol dependence: Status: Acute Code(s): F10.20 - Alcohol dependence, uncomplicated (2) MDD (major depressive disorder), recurrent episode, moderate: Status: Acute Code(s): F33.1 - Major depressive disorder, recurrent, moderate (3) Seizure disorder: Status: Chronic Code(s): G40.909 - Epilepsy, unspecified, not intractable, without status epilepticus (4) Malingering: Status: Acute Code(s): Z76.5 - Malingerer [conscious simulation] Assessment and Plan: fabricated seizure for secondary gain Assessment and Plan: IMPRESSION: Pt is a 51yo male with hx of depression, anxiety and alcohol dependence who presents for worsening depression and in a moment of hopelessness, suicidal ideation. Pt reports depression but says SI has resolved. He reports no hx of self harm. Patient has been drinking daily for decades with 1 or 2 weeks of sobriety in between long periods of abuse. Patient has history of childhood trauma that was not discussed; patient reports also being bullied in high school. Patient's mother had antisocial traits and ran a fairly large cocaine and cannabis business in the and taught her son to perk here and distribute these drugs. Could not get adequate history to assess for bipolar disorder given long history of daily substance abuse. Patient also did not discuss history of trauma and so it is unclear if he has symptoms of PTSD. Patient currently reports depression with diminished interest, guilty feelings, low energy, poor concentration and brief SI. That said he does not see himself as 1 who is overly depressed. Will treat patient for alcohol withdrawal. Patient is considering disulfiram; will not restart naltrexone since patient says it is not very helpful. He was also not taking atorvastatin. Will however continue both anti epileptic medications as patient said he was taking them regularly. pt stabilizing; no si today pt faked a seizure in order to get either opioid pain medication or to help him stay on unit for another night. This was not a pseudo seizure but conscious and deliberate attempt for secondary gain. Pt may infact have a seizure disorder (though he knows very little about it and has only talked about it interms of withdrawal seizures), however this was not one of them. -pt denies SI; says depression resolved; Patient is stabilized, withdrawal symptoms complete. Patient is future oriented and looking to discharge. He wants to continue on the same medications. Patient reports he has a history of seizure disorder; he is on Lamictal which is a mood stabilizer and good for depression as well. Filling Machine Tender reviewed risks and side effects of this medication including risk for severe deadly rash which patient understands and will continue taking medications appropriately. Patient of course remains vulnerable to relapse, however he plans to pursue AA and engage in meaningful work which will be helpful. Despite his vulnerability to relapse, Patient is not in imminent risk for harm to self or others and his request for discharge honored. PLAN: Patient on CV Q 15 minutes checks for safety Ativan/gabapentin taper escitalopram to 10 mg for ongoing depression/anxiety Will continue Lamictal which patient says he takes regularly for seizure disorder; functional tester typewriters reviewed risks/side effects of this medication to which patient understood A continue other home meds for now Greater than 50% of the session was spent on counseling and/or coordination of care Reason for contiued inpatient stay Substantial Risk for: stable for discharge
--- NOTE | 2021-04-18 15:19 | PM.PSYDC ---
DS: Providers Provider Date of Service: 04/19/21 Date of admission: 04/14/21 17:38 Date of discharge: 04/19/21 Primary care physician: Alesia Lundberg NP Attending physician on admission: Philip Galarza Consults: 04/15/21 14:24 Consult to Hospitalist Routine Consulting Provider: Hospitalist Reason For Exam: admission physical Attending physician on discharge: Philip Galarza DS: Diagnosis Discharge Diagnosis (1) MDD (major depressive disorder), recurrent episode, moderate: Status: Chronic (2) Alcohol dependence: Status: Chronic (3) Seizure disorder: Status: Chronic (4) Malingering: Status: Acute DS: Medications Discharge Medications Home Medications: Home Medications Medication Instructions Recorded Confirmed escitalopram oxalate 5 mg tablet 5 mg PO DAILY 04/14/21 04/14/21 lacosamide 200 mg tablet (Vimpat) 200 mg PO BID 04/14/21 04/14/21 lamotrigine 200 mg tablet 1 tab PO BID 04/14/21 04/14/21 omeprazole 40 mg capsule,delayed 40 mg PO DAILY 04/14/21 04/14/21 release topiramate 200 mg tablet 1 tab PO BID 04/14/21 04/14/21 Mental Status Exam Mental Status Exam Narrative: ?Pt is alert and oriented; behavior is cooperative, friendly and calm; patient is not in distress; dressed in casual cloths, scruffy but with adequate hygiene; mood is described as good and affect congruent, bright; eye contact appropriate; Speech is verbose, but normal rate, volume and prosody and not pressured; no psychomotor retardation; thought process is quite circumstantial but otherwise goal oriented; Thought content is discharge plan on telling stories; no delusional content, paranoid ideations or grandiosity; denies any SI/HI. There is no evidence of perceptual disturbance.? Patients insight and judgment appear intact. Data Data Completed and Pending Completed studies during hospitalization [Text1]: 04/15/21 04/15/21 04/15/21 15:50 15:51 15:51 WBC 3.9 L RBC 3.99 L Hgb 12.8 L Hct 38.1 L MCV 95.5 MCH 32.1 MCHC 33.6 RDW 14.2 Plt Count 294 MPV 9.0 L Immature Gran % (Auto) 0.3 Neut % (Auto) 59.2 Lymph % (Auto) 20.4 Hendry % (Auto) 15.8 H Eos % (Auto) 3.3 Baso % (Auto) 1.0 Lymph # (Auto) 0.8 L Hendry # (Auto) 0.6 Eos # (Auto) 0.1 Baso # (Auto) 0.0 Abs Immat Gran (auto) 0.01 Absolute Neuts (auto) 2.3 Absolute Nucleated RBC 0.000 Nucleated RBC % (auto) 0.0 Sodium 138 Potassium 4.1 Chloride 109 H Carbon Dioxide 21 L Anion Gap 12 BUN 15 Creatinine 1.07 Estim Creat Clear Calc 79.9 Estimated GFR > 60 Total Bilirubin 0.4 Direct Bilirubin < 0.2 AST 15 ALT 10 Alkaline Phosphatase 64 Total Protein 7.0 Albumin 4.1 DS: Summary Hospital Course Hospital Course: Pt is a 51yo male with hx of depression, anxiety and alcohol dependence who presents for worsening depression and in a moment of hopelessness, suicidal ideation. Pt reports depression but says SI has resolved. He reports no hx of self harm.? Patient has been drinking daily for decades with 1 or 2 weeks of sobriety in between long periods of abuse.? Patient has history of childhood trauma that was not discussed; patient reports also being bullied in high school.? Patient's mother had antisocial traits and ran a fairly large cocaine and cannabis business in the 1980s and taught her son to perk here and distribute these drugs.? Could not get adequate history to assess for bipolar disorder given long history of daily substance abuse.? Patient also did not discuss history of trauma and so it is unclear if he has symptoms of PTSD.? Patient currently reports depression with diminished interest, guilty feelings, low energy, poor concentration and brief SI.? That said he does not see himself as 1 who is overly depressed.? Will treat patient for alcohol withdrawal.? Patient is considering disulfiram; will not restart naltrexone since patient says it is not very helpful.? He was also not taking atorvastatin.? Continued both anti epileptic medications as patient said he was taking them regularly. Patient signed a CV. He quickly stabilized and continued to deny any SI, and reported that his depression was getting better. Patient was treated for mild alcohol withdrawal with scheduled Ativan/gabapentin taper. His escitalopram was increased to 10 mg to help treat depressive symptoms and this was well tolerated. Patient was eating and sleeping well throughout the admission. Patient intermittently was irritable with both staff and peers, getting into a verbal argument with a peer about the music headphones, and responding irritably with staff when he felt his needs were not met quickly enough. Other than that however patient said he was grateful for the admission and that he was feeling much better. During admission patient fabricated a seizure in order to get both opioid pain medication (pretending to have hurt his back during the seizure) and secure himself another nights stay on the unit. Maintenance Pipefitter witnessed entire event and concluded that this was not a pseudo seizure but rather a conscious and deliberate attempt for secondary gain. Maintenance Pipefitter concedes that patient likely does have a seizure disorder as his outpatient provider prescribes him 3 antiepileptics which he takes regularly (he is vague on seizure hx and to this science writer, only talked about it in terms of withdrawal seizures), however this event was not one of them. Maintenance Pipefitter was not planning to discharge him anyway and agreed it was fine for him to remain on unit. Otherwise, Patient remained stable and withdrawal symptoms completed.? Patient is future oriented and started talking about discharge and his options. 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 He says AA is an absolute must and he will be attending regularly.? He feels that his medications are working and wants to continue with them.? Patient reports that his father is very supportive and will be able to come pick him up from the hospital.? Patient thanked science writer for help during this admission and while he knows and expressed that he remains vulnerable to relapse, he plans to pursue AA daily and engage in meaningful work which he thinks will be helpful.? Despite his vulnerability to relapse, Patient is not in imminent risk for harm to self or others and his request for discharge honored. Status at Discharge Functional status at discharge: independent ambulation Overall status at discharge: patient is back to baseline Time Spent with Patient Time attestation: Total time spent providing and/or coordinating discharge services: Discharge Plan Discharge Patient Disposition: [facility] Discharge Diagnosis: MDD, recurrent, moderate in full remission; alcohol use disorder, severe in early remission Referrals: [facility] [Other] - 04/19/21 3:30 pm (Referral to [facility] Patient needs to present for initial intake and overnight assessment following discharge ) [facility] [Other] - 04/20/21 9:00 am (Referral Submitted to [facility] Patient needs to follow-up with them on 04/20/21 at 9:00 am) [facility] [Other] - 04/20/21 9:00 am (Patient will follow up with outpatient services upon [place] [facility] Patient provided with telephone number per his request) Alesia Lundberg NP [Primary Care Provider] - 1 Week Discharge Medications: New folic acid 1 mg Tablet 1 mg PO DAILY 30 Days Qty: 30 RF: 0 escitalopram oxalate 10 mg Tablet 10 mg PO DAILY 30 Days Qty: 30 RF: 0 thiamine mononitrate (vit B1) 100 mg Tablet 100 mg PO DAILY 30 Days Qty: 30 RF: 0 trazodone 50 mg Tablet 50 mg PO BEDTIME PRN (Reason: Insomnia) 30 Days Qty: 30 RF: 0 Continued omeprazole 40 mg Capsule,Delayed Release(Dr/Ec) 40 mg PO DAILY 30 Days Qty: 30 RF: 0 Vimpat 200 mg Tablet 200 mg PO BID 30 Days Qty: 60 RF: 0 Changed lamotrigine 200 mg tablet 200 mg PO BID 30 Days Qty: 60 RF: 0 topiramate 200 mg tablet 200 mg PO BID 30 Days Qty: 60 RF: 0 Discontinued escitalopram oxalate 5 mg Tablet 5 mg PO DAILY RF: 0 Discharge Orders: Discharge Order (Routine); Ordered 04/19/21 Ordered By: Philip Galarza Stand Alone Forms: Patient Portal Discharge page Care Plan Goals: Maintain mood and safe behaviors Take medications as prescribed Continue to pursue sobriety Practice coping skills Continue with outpatient providers and reach out to them as needed ? Health Concerns: Mood stability and behaviors Sobriety Plan of Treatment: Follow up with your PCP and psychiatric provider regarding above concerns Take medications as prescribed Assessment: Risk assessment at time of discharge:? Patient was interviewed prior to discharge and found to be fully oriented and without any SI or HI. Patient has insight and demonstrates good judgment in terms of wanting to pursue treatment. Patient is not in imminent risk of harm to self or others and has a safety plan that includes presenting to the closest ER or calling 911 if feeling unsafe.? Patient has been observed closely by nursing and unit staff throughout admission; patient has not engaged in any behaviors that suggest dangerousness to self or others and has demonstrated appropriate behaviors and impulse control.
[2021-04-18 17:33] VITALS: BP 115/73; PULSE 88; TEMP 36.5
[2021-04-19] MEDS: Omeprazole 40 MG CAPSULE.DR PO (05:54)
[2021-04-19 06:00] VITALS: BP 111/71; PULSE 64; RESP 16; TEMP 36.6; O2SAT 97
[2021-04-19] MEDS: Lacosamide 100 MG TABLET 200 MG PO (09:16)
[2021-04-19] MEDS: lamoTRIgine 100 MG TABLET 200 MG PO (09:16)
[2021-04-19] MEDS: Gabapentin 300 MG CAPSULE PO (09:17)
[2021-04-19] MEDS: Escitalopram Oxalate 10 MG TABLET PO (09:17)
[2021-04-19] MEDS: Topiramate 100 MG TABLET 200 MG PO (09:17)
[2021-04-19] MEDS: Folic Acid 1 MG TABLET PO (09:17)
[2021-04-19] MEDS: Thiamine HCL 100 MG TABLET PO (09:17)
[2021-04-19] MEDS: LORazepam 1 MG TABLET PO (14:08)
== END 2021-04-19 15:45 | disposition home or self-care (01) | DRG 885 ==
PROVIDERS: Psychiatry & Neurology Psychiatry; Admitting Provider Psychiatry & Neurology Psychiatry; PCP Nurse Practitioner Family; Visit Provider Psychiatry & Neurology Psychiatry
DX: F33.1 Major depressive disorder, recurrent, moderate (principal); R45.851 Suicidal ideations; K21.9 Gastro-esophageal reflux disease without esophagitis; G40.909 Epilepsy, unspecified, not intractable, without status epilepticus; F10.20 Alcohol dependence, uncomplicated; F43.12 Post-traumatic stress disorder, chronic; Z59.0 Homelessness; F17.210 Nicotine dependence, cigarettes, uncomplicated; Z71.6 Tobacco abuse counseling; Z79.899 Other long term (current) drug therapy; Z76.5 Malingerer [conscious simulation]
CPT/HCPCS: 36415; 80051; 80076; 82565; 84520; 85025; J3411

== ENCOUNTER 2021-12-26 15:51 | Emergency (ER) | payer MEDICARE, MEDICAID, SELFPAY ==
--- NOTE | 2021-12-26 | ECG_ITS ---
Test Reason : SEIZURE Blood Pressure : / mmHG Vent. Rate : 099 BPM Atrial Rate : 099 BPM P-R Int : 138 ms QRS Dur : 098 ms QT Int : 344 ms P-R-T Axes : 056 047 057 degrees QTc Int : 441 ms Normal sinus rhythm Normal ECG No previous ECGs available Referred By: Adria Reyes Electronically Signed By:REBECCA WOO MD
[2021-12-26 15:58] VITALS: BP 103/75; PULSE 100; RESP 18; TEMP 36.8; O2SAT 99; BMI 21.7
--- NOTE | 2021-12-26 16:21 | ED_ITS ---
HPI - Seizure General Chief Complaint: Seizure Stated Complaint: seizure Time Seen by Provider: 12/26/21 16:21 Source: patient Mode of arrival: EMS Limitations: no limitations History of Present Illness HPI Narrative: patient is on topimax and lamictal, he states he takes his medications. Patient states he gets a seizure rarely. Patient states that he is in a rehab for alcohol and he has not slept because of his roommate. states that he has been sober for the past 2 months. Denies injury. complaint: seizure Onset (ago): minute(s) Description of Episode: tonic-clonic movement -: minutes(s) Witnessed: Yes - by Bystander Place: rehab Related Data Previous Rx's Medication Instructions Recorded escitalopram oxalate 10 mg tablet 10 mg PO DAILY 30 Days #30 tab 04/18/21 folic acid 1 mg tablet 1 mg PO DAILY 30 Days #30 tab 04/18/21 thiamine mononitrate (vit B1) 100 100 mg PO DAILY 30 Days #30 tab 04/18/21 mg tablet trazodone 50 mg tablet 50 mg PO BEDTIME PRN 30 Days #30 04/18/21 tab lacosamide 200 mg tablet (Vimpat) 200 mg PO BID 30 Days #60 tab 04/19/21 lamotrigine 200 mg tablet 200 mg PO BID 30 Days #60 tab 04/19/21 omeprazole 40 mg capsule,delayed 40 mg PO DAILY 30 Days #30 cap 04/19/21 release topiramate 200 mg tablet 200 mg PO BID 30 Days #60 tab 04/19/21 Allergies Allergy/AdvReac Type Severity Reaction Status Date / Time levetiracetam [From [facility]] AdvReac Severe psychosis Unverified 04/14/21 20:47 Review of Systems Constitutional: Constitutional: Reports no additional constitutional complaints Eyes: Eyes: Reports no additional eye complaints ENT: Denies dizziness Cardiovascular: Cardiovascular: Reports no additional cardiovascular complaints Respiratory: Respiratory: Reports as per HPI Gastrointestinal: Gastrointestinal: Reports no additional gastrointestinal complaints Musculoskeletal: Musculoskeletal: Reports no additional musculoskeletal complaints Integumentary/Breasts: Skin/Breast: Denies rash Neurologic: Reports system reviewed and no additional complaints, except as documented, Denies dizziness and Denies Sensory deficit (Neuro) Psychiatric: Psychiatric: Denies anxiety PMFSH Past Medical History Medical History Alcohol dependence Chronic post-traumatic stress disorder (PTSD) GERD (gastroesophageal reflux disease) MDD (major depressive disorder), recurrent episode, moderate MDD (major depressive disorder), recurrent episode, severe Seizure disorder Social History Social History Housing: Homeless Do you presently have visiting nurse or other home services: No Patient Tobacco Use Status: Current everyday Tobacco user Tobacco use type: Cigarette Cigarettes Per Day: 1 Years Smoked: 30 e-Cigarette/Vaping Use: Never Used Second Hand Smoke Exposure: Yes Substance Use Type: Marijuana Advance Directives: No Advance Directives Information Provided: No service: No Sexual orientation: Straight/Heterosexual Physical Exam Vital Signs: Vital Signs: Last Vital Signs Temp 98.3 F 12/26/21 15:58 Pulse 100 12/26/21 15:58 Resp 18 12/26/21 15:58 BP 103/75 12/26/21 15:58 Pulse Ox 99 12/26/21 15:58 BMI result Body Mass Index 21.7 Const: General: healthy appearing Nutritional Appearance: average body habitus Orientation/consciousness: oriented to person and patient oriented x3 Limitations: no limitations HEENT: Head: Yes normal to inspection Ears: external ears normal General nose exam: Normal external nose present Mouth: Normal oral and palatal mucosa present and oropharynx normal Throat: Yes posterior oropharynx normal Eyes: General: appearance normal, both eyes and all related structures Neck: Other: supple Neck: Yes normal visual inspection Chest: Chest palpation & inspection: normal inspection of the chest Resp: Auscultation: clear to auscultation bilaterally Cardio: Jugular venous distension: no JVD Rate: regular rate Rhythm: regular rhythm Heart sounds: S1 normal heart sound present and S2 normal heart sound present GI: Inspection: Yes normal to inspection Palpation (GI): Soft to palpation, nontender and No hepatosplenomegaly present Auscultation: normal bowel sounds : General: Yes no CVA tenderness Back/Spine/Pelvis: Back: no CVA tenderness Skin: General skin exam: no rashes or lesions noted Neuro: General: oriented to person and patient oriented x3 Cranial nerves: Yes CN's II-XII intact bilaterally Motor exam (neuro): 5/5 motor strength present throughout Sensory Exam: No Sensory deficit (Neuro) Extrem: General: Yes normal to inspection Psych: Appearance: grossly normal Course Reevaluation(s) Reevaluation #1: patient presented with seizure states he is compliant with medication, there is some mild elevation of his creatinine will have him follow up with PMD and increase hydration Time: 17:50 MDM - Seizure Lab Data Result diagrams: 12/26/21 16:56 12/26/21 16:56 Labs: Lab Results 12/26/21 12/26/21 Range/Units 16:56 16:56 WBC 6.7 (4.8-10.8) X10*3/uL RBC 4.01 L (4.60-5.80) X10*6/uL Hgb 12.5 L (14.0-18.0) g/dl Hct 36.1 L (42.0-52.0) % MCV 90.0 (80.0-98.0) fL MCH 31.2 (27.0-33.0) pg MCHC 34.6 (31.0-36.0) g/dl RDW 13.6 (11.0-16.0) % Plt Count 304 (160-400) X10*3/uL MPV 8.9 L (9.4-12.4) fL Immature Gran % (Auto) 0.2 (0.0-0.4) % Neut % (Auto) 65.6 (45-73) % Lymph % (Auto) 20.2 (20-40) % Cameron % (Auto) 10.2 (2-11) % Eos % (Auto) 2.9 (0-4) % Baso % (Auto) 0.9 (0-2) % Lymph # (Auto) 1.3 (1.2-4.9) X10*3/uL Cameron # (Auto) 0.7 (0.1-1.2) X10*3/uL Eos # (Auto) 0.2 (0.0-0.4) X10*3/uL Baso # (Auto) 0.1 (0.0-0.2) X10*3/uL Abs Immat Gran (auto) 0.01 (0.00-0.03) X10*3/uL Absolute Neuts (auto) 4.4 (2.0-8.3) x10*3/uL Absolute Nucleated RBC 0.000 (0.0-0.012) X10*3/uL Nucleated RBC % (auto) 0.0 (0.0-0.2) /100WBC Sodium 138 (135-145) mmol/L Potassium 4.2 (3.3-5.1) mmol/L Chloride 109 H (96-108) mmol/L Carbon Dioxide 21 L (22-29) mmol/L Anion Gap 12 (12-20) BUN 20 H (9-16) mg/dL Creatinine 1.56 H (0.5-1.4) mg/dL Estim Creat Clear Calc 58.1 Estimated GFR 47 Random Glucose 103 (60-115) mg/dL Calcium 9.2 (8.4-10.2) mg/dL Magnesium 2.0 (1.6-2.6) mg/dL ECG Data Attestation: I personally reviewed and interpreted this ECG as follows: Interpretation: normal sinus 100, no st or twave changes Discharge Plan Discharge Clinical Impression: Seizure disorder, Renal insufficiency Patient Disposition: Home, Self-Care Instructions: Epilepsy (ED), Impaired Kidney Function (ED) Additional Instructions: Increase fluids and have your kidney function checked in a week Prescriptions: No Action folic acid 1 mg Tablet 1 mg PO DAILY 30 Days Qty: 30 0RF escitalopram oxalate 10 mg Tablet 10 mg PO DAILY 30 Days Qty: 30 0RF thiamine mononitrate (vit B1) 100 mg Tablet 100 mg PO DAILY 30 Days Qty: 30 0RF trazodone 50 mg Tablet 50 mg PO BEDTIME PRN (Reason: Insomnia) 30 Days Qty: 30 0RF lamotrigine 200 mg tablet 200 mg PO BID 30 Days Qty: 60 0RF omeprazole 40 mg Capsule,Delayed Release(Dr/Ec) 40 mg PO DAILY 30 Days Qty: 30 0RF topiramate 200 mg tablet 200 mg PO BID 30 Days Qty: 60 0RF Vimpat 200 mg Tablet 200 mg PO BID 30 Days Qty: 60 0RF Referrals: Physician,None [Primary Care Provider] - 1 week
[2021-12-26] MEDS: Acetaminophen 325 MG TABLET 975 MG PO (16:46)
--- NOTE | 2021-12-26 16:47 | PC.NURSE ---
spoke to Brain from the [facility] clients care home program if any questions please call at [phone]
[2021-12-26 17:01] LABS: Basophils Absolute Auto 0.1 X10*3/uL (0.0-0.2); Basophils Percent Auto 0.9 % (0-2); Eosinophils Absolute Auto 0.2 X10*3/uL (0.0-0.4); Eosinophils Percent Auto 2.9 % (0-4); Hematocrit 36.1 % (42.0-52.0); Hemoglobin 12.5 g/dl (14.0-18.0); Imm Gran Abs Auto 0.01 X10*3/uL (0.00-0.03); Imm Gran Pct Auto 0.2 % (0.0-0.4); Lymphocytes Absolute Auto 1.3 X10*3/uL (1.2-4.9); Lymphocytes Percent Auto 20.2 % (20-40); MANUAL DIFF FLAG NO; Mean Corpuscular HGB Conc 34.6 g/dl (31.0-36.0); Mean Corpuscular Hemoglobin 31.2 pg (27.0-33.0); Mean Platelet Volume 8.9 fL (9.4-12.4); Monocytes Absolute Auto 0.7 X10*3/uL (0.1-1.2); Monocytes Percent Auto 10.2 % (2-11); Neutrophils Absolute Auto 4.4 x10*3/uL (2.0-8.3); Neutrophils Percent Auto 65.6 % (45-73); Platelet Count 304 X10*3/uL (160-400); Red Blood Count 4.01 X10*6/uL (4.60-5.80); Red Cell Distribution Width 13.6 % (11.0-16.0); White Blood Count 6.7 X10*3/uL (4.8-10.8)
[2021-12-26 17:18] LABS: Anion Gap 12 (12-20); Blood Urea Nitrogen 20 mg/dL (9-16); Calcium 9.2 mg/dL (8.4-10.2); Carbon Dioxide 21 mmol/L (22-29); Chloride 109 mmol/L (96-108); Creatinine Clr Calc Pharmacy 58.1; Estimated Glomerular Filt Rate 47; Glucose Random 103 mg/dL (60-115); Potassium 4.2 mmol/L (3.3-5.1); Sodium 138 mmol/L (135-145)
== END 2021-12-26 18:07 | disposition home or self-care (01) ==
PROVIDERS: Emergency Provider Emergency Medicine
DX: R56.9 Unspecified convulsions (principal); N28.9 Disorder of kidney and ureter, unspecified; F17.210 Nicotine dependence, cigarettes, uncomplicated; Z71.6 Tobacco abuse counseling; Z79.899 Other long term (current) drug therapy
CPT/HCPCS: 36415; 80048; 83735; 85025; 93005; 99282; 99283; 99284

== ENCOUNTER 2021-12-28 12:48 | Emergency (ER) | payer MEDICARE, MEDICAID, SELFPAY ==
[2021-12-28 12:52] VITALS: BP 127/73; PULSE 102; O2SAT 96
[2021-12-28 12:53] VITALS: BP 121/85; PULSE 102; RESP 18; O2SAT 97; BMI 25.2
--- NOTE | 2021-12-28 13:09 | ED_ITS ---
HPI - Seizure General Chief Complaint: Seizure Stated Complaint: SEIZURE,POST ICTAL @ THIS TIME Time Seen by Provider: 12/28/21 13:08 Source: patient and EMS Mode of arrival: EMS Limitations: no limitations History of Present Illness HPI Narrative: 51 y/o male with history of seizure disorder on 3 antiseizure medications, PTSD, depression, GERD, alcohol use disoder almost 2 months sober who presents to the ER via EMS from his sober house after having a witnessed seizure lasting 1 minute. He was sitting on the couch watching TV at the time. He reports he did not take his seizure medications today because he did not hear his name called during passing out of medications. He was confused and post-ictal after the event but arrives to the ER AAO X3. complaint: seizure Onset (ago): minute(s) Description of Episode: tonic-clonic movement Duration of episode: 1 -: minutes(s) Witnessed: Yes - by Bystander Trauma: No Seizure History: Yes Place: Home Possible Precipitating Event: lack of sleep, stress and medication Associated symptoms: denies other symptoms Treatments prior to arrival: none Related Data Previous Rx's Medication Instructions Recorded escitalopram oxalate 10 mg tablet 10 mg PO DAILY 30 Days #30 tab 04/18/21 folic acid 1 mg tablet 1 mg PO DAILY 30 Days #30 tab 04/18/21 thiamine mononitrate (vit B1) 100 100 mg PO DAILY 30 Days #30 tab 04/18/21 mg tablet trazodone 50 mg tablet 50 mg PO BEDTIME PRN 30 Days #30 04/18/21 tab lacosamide 200 mg tablet (Vimpat) 200 mg PO BID 30 Days #60 tab 04/19/21 lamotrigine 200 mg tablet 200 mg PO BID 30 Days #60 tab 04/19/21 omeprazole 40 mg capsule,delayed 40 mg PO DAILY 30 Days #30 cap 04/19/21 release topiramate 200 mg tablet 200 mg PO BID 30 Days #60 tab 04/19/21 Allergies Allergy/AdvReac Type Severity Reaction Status Date / Time levetiracetam [From [facility]] AdvReac Severe psychosis Unverified 04/14/21 20:47 Review of Systems Review of Systems: Constitutional: No Fever, No Chills ENT/Mouth: No sore throat, No Rhinorrhea, No Swallowing Difficulty Eyes: No Eye Pain, No Swelling, No Redness Cardiovascular: No Chest Pain, No SOB, No Orthopnea, No Edema Respiratory: No Cough, No Sputum, No Wheezing, No dyspnea Gastrointestinal: No Nausea, No Vomiting, No Diarrhea, No abdominal Pain Genitourinary: No Dysuria, No Urinary Frequency, No Hematuria Musculoskeletal: No joint pain, No Myalgias Skin: No Skin Lesions, No rash Neuro: No Weakness, No Numbness, No Dizziness, No Headache Psych: + Anxiety/Panic, + Depression Heme/Lymph: No Bruising, No Lymphadenopathy Endocrine: No Polyuria, No Polydipsia [facility] Past Medical History Medical History Alcohol dependence Chronic post-traumatic stress disorder (PTSD) GERD (gastroesophageal reflux disease) MDD (major depressive disorder), recurrent episode, moderate MDD (major depressive disorder), recurrent episode, severe Seizure disorder Social History Social History Housing: Homeless Do you presently have visiting nurse or other home services: No Patient Tobacco Use Status: Current everyday Tobacco user Tobacco use type: Cigarette Cigarettes Per Day: 1 Years Smoked: 30 e-Cigarette/Vaping Use: Never Used Second Hand Smoke Exposure: Yes Substance Use Type: Marijuana Advance Directives: No Advance Directives Information Provided: No service: No Sexual orientation: Straight/Heterosexual Physical Exam Vital Signs: Vital Signs: Last Vital Signs Pulse 79 12/28/21 14:25 Resp 16 12/28/21 14:25 BP 102/73 12/28/21 14:25 Pulse Ox 98 12/28/21 14:25 BMI result Body Mass Index 25.2 Appearance: Alert. Oriented X3. No acute distress. Eyes: Pupils equal, round and reactive to light. ENT: Pharynx normal. Neck: Normal inspection. Neck supple. CVS: Normal heart rate and rhythm. Pulses normal. Respiratory: No respiratory distress. Breath sounds normal. Abdomen: Soft and nontender. +BS x4 Skin: Skin warm and dry. Normal skin color. Normal skin turgor. No rashes. Extremities: No lower extremity edema. Neuro: Oriented X 3. No motor deficit. No sensory deficit. Normal speech. Normal cognition. Nonfocal. Course Course Course Narrative: 51-year-old male with a history of seizure disorder on 3 antiepileptic drugs, GERD, depression, PTSD, former alcohol abuse currently sober for the last 2 months who presents to the ER for evaluation of witnessed seizure this morning at home, after he did not take his antiepileptic drugs this morning. He was reportedly postictal after having tonic clonic seizure activity. On arrival to the ER he is A&O x3, nonfocal. Will check basic lab workup, p.o. home seizure meds have been ordered. Reevaluation(s) Reevaluation #1: CORRINA from the other day is improved but not yet normalized. His bicarb is 16 without an anion gap. His CPK, lactic acid and pH are normal. He is getting IVF. No further seizure activity while in the ED. Reevaluation #2: Patient is stable for discharge home with plan to continue his seizure medications and follow up with his neurologist. MDM - Seizure Lab Data Result diagrams: 12/28/21 13:13 12/28/21 13:13 Labs: Lab Results 12/28/21 12/28/21 12/28/21 Range/Units 13:13 13:13 15:22 WBC 6.0 (4.8-10.8) X10*3/uL RBC 4.10 L (4.60-5.80) X10*6/uL Hgb 12.6 L (14.0-18.0) g/dl Hct 37.0 L (42.0-52.0) % MCV 90.2 (80.0-98.0) fL MCH 30.7 (27.0-33.0) pg MCHC 34.1 (31.0-36.0) g/dl RDW 13.7 (11.0-16.0) % Plt Count 324 (160-400) X10*3/uL MPV 9.0 L (9.4-12.4) fL Immature Gran % (Auto) 0.2 (0.0-0.4) % Neut % (Auto) 62.0 (45-73) % Lymph % (Auto) 23.9 (20-40) % Bullock % (Auto) 9.7 (2-11) % Eos % (Auto) 3.5 (0-4) % Baso % (Auto) 0.7 (0-2) % Lymph # (Auto) 1.4 (1.2-4.9) X10*3/uL Bullock # (Auto) 0.6 (0.1-1.2) X10*3/uL Eos # (Auto) 0.2 (0.0-0.4) X10*3/uL Baso # (Auto) 0.0 (0.0-0.2) X10*3/uL Abs Immat Gran (auto) 0.01 (0.00-0.03) X10*3/uL Absolute Neuts (auto) 3.7 (2.0-8.3) x10*3/uL Absolute Nucleated RBC 0.000 (0.0-0.012) X10*3/uL Nucleated RBC % (auto) 0.0 (0.0-0.2) /100WBC VBG pH (7.32-7.43) VBG pCO2 mmHg VBG pO2 mmHg VBG HCO3 (22-26) mmol/L VBG O2 Saturation % VBG Base Excess mmol/L Sodium 138 (135-145) mmol/L Potassium 4.4 (3.3-5.1) mmol/L Chloride 111 H (96-108) mmol/L Carbon Dioxide 16 L (22-29) mmol/L Anion Gap 15 (12-20) BUN 23 H (9-16) mg/dL Creatinine 1.42 H (0.5-1.4) mg/dL Estim Creat Clear Calc 68.3 Estimated GFR 53 Random Glucose 113 (60-115) mg/dL Lactic Acid 0.9 (0.5-2.0) mmol/L Calcium 9.6 (8.4-10.2) mg/dL Magnesium 2.0 (1.6-2.6) mg/dL Total Bilirubin 0.2 (0.0-1.0) mg/dL Direct Bilirubin < 0.2 (0.0-0.5) mg/dL AST 14 (5-37) U/L ALT 9 (0-40) U/L Alkaline Phosphatase 46 D (39-117) U/L Total Creatine Kinase 130 (38-174) U/L Total Protein 7.2 (6.5-8.0) g/dL Albumin 4.2 (3.5-5.0) g/dL 12/28/21 Range/Units 15:25 WBC (4.8-10.8) X10*3/uL RBC (4.60-5.80) X10*6/uL Hgb (14.0-18.0) g/dl Hct (42.0-52.0) % MCV (80.0-98.0) fL MCH (27.0-33.0) pg MCHC (31.0-36.0) g/dl RDW (11.0-16.0) % Plt Count (160-400) X10*3/uL MPV (9.4-12.4) fL Immature Gran % (Auto) (0.0-0.4) % Neut % (Auto) (45-73) % Lymph % (Auto) (20-40) % Bullock % (Auto) (2-11) % Eos % (Auto) (0-4) % Baso % (Auto) (0-2) % Lymph # (Auto) (1.2-4.9) X10*3/uL Bullock # (Auto) (0.1-1.2) X10*3/uL Eos # (Auto) (0.0-0.4) X10*3/uL Baso # (Auto) (0.0-0.2) X10*3/uL Abs Immat Gran (auto) (0.00-0.03) X10*3/uL Absolute Neuts (auto) (2.0-8.3) x10*3/uL Absolute Nucleated RBC (0.0-0.012) X10*3/uL Nucleated RBC % (auto) (0.0-0.2) /100WBC VBG pH 7.38 (7.32-7.43) VBG pCO2 30 mmHg VBG pO2 178 mmHg VBG HCO3 18 L (22-26) mmol/L VBG O2 Saturation 99.0 % VBG Base Excess -5.5 mmol/L Sodium (135-145) mmol/L Potassium (3.3-5.1) mmol/L Chloride (96-108) mmol/L Carbon Dioxide (22-29) mmol/L Anion Gap (12-20) BUN (9-16) mg/dL Creatinine (0.5-1.4) mg/dL Estim Creat Clear Calc Estimated GFR Random Glucose (60-115) mg/dL Lactic Acid (0.5-2.0) mmol/L Calcium (8.4-10.2) mg/dL Magnesium (1.6-2.6) mg/dL Total Bilirubin (0.0-1.0) mg/dL Direct Bilirubin (0.0-0.5) mg/dL AST (5-37) U/L ALT (0-40) U/L Alkaline Phosphatase (39-117) U/L Total Creatine Kinase (38-174) U/L Total Protein (6.5-8.0) g/dL Albumin (3.5-5.0) g/dL Critical Care Time Critical Care Time Critical Care Time: No Discharge Plan Discharge Clinical Impression: Epileptic seizure Patient Disposition: Home, Self-Care Instructions: Recurrent Seizures in Adults (ED) Additional Instructions: Your labs showed your kidney function is improved but not quite yet fully normal. Make sure you are drinking plenty of fluids. It is important that you take all of your seizure medications exactly as prescribed. You cannot be late or missed any doses. Follow-up with your neurologist this week. Do your best to minimize stress and get plenty of sleep. Follow up with your doctor for repeat labs early next week. Prescriptions: No Action folic acid 1 mg Tablet 1 mg PO DAILY 30 Days Qty: 30 0RF escitalopram oxalate 10 mg Tablet 10 mg PO DAILY 30 Days Qty: 30 0RF thiamine mononitrate (vit B1) 100 mg Tablet 100 mg PO DAILY 30 Days Qty: 30 0RF trazodone 50 mg Tablet 50 mg PO BEDTIME PRN (Reason: Insomnia) 30 Days Qty: 30 0RF lamotrigine 200 mg tablet 200 mg PO BID 30 Days Qty: 60 0RF omeprazole 40 mg Capsule,Delayed Release(Dr/Ec) 40 mg PO DAILY 30 Days Qty: 30 0RF topiramate 200 mg tablet 200 mg PO BID 30 Days Qty: 60 0RF Vimpat 200 mg Tablet 200 mg PO BID 30 Days Qty: 60 0RF
[2021-12-28] MEDS: Lacosamide 100 MG TABLET 200 MG PO (13:15)
[2021-12-28] MEDS: lamoTRIgine 100 MG TABLET 200 MG PO (13:15)
[2021-12-28 13:17] VITALS: BP 102/68; PULSE 91; RESP 18; O2SAT 97
[2021-12-28 13:18] LABS: MANUAL DIFF FLAG NO
[2021-12-28 13:20] LABS: Basophils Percent Auto 0.7 % (0-2); Eosinophils Absolute Auto 0.2 X10*3/uL (0.0-0.4); Eosinophils Percent Auto 3.5 % (0-4); Hemoglobin 12.6 g/dl (14.0-18.0); Imm Gran Abs Auto 0.01 X10*3/uL (0.00-0.03); Imm Gran Pct Auto 0.2 % (0.0-0.4); Lymphocytes Absolute Auto 1.4 X10*3/uL (1.2-4.9); Lymphocytes Percent Auto 23.9 % (20-40); Mean Corpuscular HGB Conc 34.1 g/dl (31.0-36.0); Mean Corpuscular Hemoglobin 30.7 pg (27.0-33.0); Mean Corpuscular Volume 90.2 fL (80.0-98.0); Monocytes Absolute Auto 0.6 X10*3/uL (0.1-1.2); Monocytes Percent Auto 9.7 % (2-11); Neutrophils Absolute Auto 3.7 x10*3/uL (2.0-8.3); Platelet Count 324 X10*3/uL (160-400); Red Cell Distribution Width 13.7 % (11.0-16.0)
[2021-12-28] MEDS: Topiramate 100 MG TABLET 200 MG PO (14:24)
[2021-12-28 14:25] VITALS: BP 102/73; PULSE 79; RESP 16; O2SAT 98
[2021-12-28 14:44] LABS: Alanine Aminotransferase 9 U/L (0-40); Albumin Level 4.2 g/dL (3.5-5.0); Alkaline Phosphatase 46 U/L (39-117); Anion Gap 15 (12-20); Aspartate Amino Transferase 14 U/L (5-37); Bilirubin Direct < 0.2 mg/dL (0.0-0.5); Bilirubin Total 0.2 mg/dL (0.0-1.0); Blood Urea Nitrogen 23 mg/dL (9-16); Calcium 9.6 mg/dL (8.4-10.2); Carbon Dioxide 16 mmol/L (22-29); Chloride 111 mmol/L (96-108); Creatinine Clr Calc Pharmacy 68.3; Estimated Glomerular Filt Rate 53; Glucose Random 113 mg/dL (60-115); Potassium 4.4 mmol/L (3.3-5.1); Sodium 138 mmol/L (135-145); Total Protein 7.2 g/dL (6.5-8.0)
[2021-12-28 15:27] LABS: Venous Blood Gas Refer to POC result
[2021-12-28 15:33] LABS: VBG Base Excess -5.5 mmol/L; VBG HCO3 18 mmol/L (22-26); VBG pCO2 30 mmHg; VBG pH 7.38 (7.32-7.43); VBG pO2 178 mmHg
[2021-12-28] MEDS: 0.9 % Sodium Chloride 1,000 ML 999 ML IVCONT (15:35)
[2021-12-28 15:42] LABS: Lactic Acid 0.9 mmol/L (0.5-2.0)
== END 2021-12-28 19:27 | disposition home or self-care (01) ==
PROVIDERS: Physician Assistant; Emergency Provider Emergency Medicine; PCP Nurse Practitioner Family
DX: G40.909 Epilepsy, unspecified, not intractable, without status epilepticus (principal); F10.11 Alcohol abuse, in remission; Z79.899 Other long term (current) drug therapy
CPT/HCPCS: 36415; 80048; 80076; 82550; 82803; 83605; 83735; 85025; 96360; 99284

== ENCOUNTER 2022-01-03 14:12 | Emergency (ER) | payer MEDICARE, MEDICAID, SELFPAY ==
[2022-01-03 14:22] VITALS: BP 113/77; PULSE 80; RESP 18; TEMP 36.9; O2SAT 98; BMI 21.7
--- NOTE | 2022-01-03 14:27 | ED.RECABL ---
HPI - Recheck/Abnormal Lab/Rx General Chief Complaint: Recheck/Abnormal Lab/Rx Stated Complaint: LAB WORK Time Seen by Provider: 01/03/22 14:23 Source: patient Mode of arrival: ambulatory Limitations: no limitations History of Present Illness HPI narrative: 51-year-old male with history of seizure disorder, PTSD, depression, GERD presents to the ER for repeat lab workup. He went to the outpatient lab today for repeat chemistry after he had 2 visits to the ER last week for seizures and an CORRINA. He had no lab order, he has no PCP. He is followed by a neurologist and had lately and is on 3 antiepileptic drugs. His last seizure was last week. He reports medication compliance. He reports eating and drinking normally. He just wants to know if his kidneys are back to normal. MD complaint: abnormal lab Initial visit (ago): day(s) Description of abnormal result: Mild CORRINA Associated symptoms: none Related Data Previous Rx's Medication Instructions Recorded escitalopram oxalate 10 mg tablet 10 mg PO DAILY 30 Days #30 tab 04/18/21 folic acid 1 mg tablet 1 mg PO DAILY 30 Days #30 tab 04/18/21 thiamine mononitrate (vit B1) 100 100 mg PO DAILY 30 Days #30 tab 04/18/21 mg tablet trazodone 50 mg tablet 50 mg PO BEDTIME PRN 30 Days #30 04/18/21 tab lacosamide 200 mg tablet (Vimpat) 200 mg PO BID 30 Days #60 tab 04/19/21 lamotrigine 200 mg tablet 200 mg PO BID 30 Days #60 tab 04/19/21 omeprazole 40 mg capsule,delayed 40 mg PO DAILY 30 Days #30 cap 04/19/21 release topiramate 200 mg tablet 200 mg PO BID 30 Days #60 tab 04/19/21 Allergies Allergy/AdvReac Type Severity Reaction Status Date / Time levetiracetam [From [facility]] AdvReac Severe psychosis Unverified 04/14/21 20:47 Review of Systems Review of Systems: Constitutional: No Fever, No Chills ENT/Mouth: No sore throat, No Rhinorrhea, No Swallowing Difficulty Cardiovascular: No Chest Pain, No SOB, No Orthopnea, No Edema Respiratory: No Cough, No Sputum, No Wheezing, No dyspnea Gastrointestinal: No Nausea, No Vomiting, No Diarrhea, No abdominal Pain Genitourinary: No Dysuria, No Urinary Frequency, No Hematuria Musculoskeletal: No joint pain, No Myalgias Skin: No Skin Lesions, No rash Neuro: No Weakness, No Numbness, No Dizziness, No Headache Psych: No Anxiety/Panic, No Depression Heme/Lymph: No Bruising, No Lymphadenopathy Endocrine: No Polyuria, No Polydipsia PMFSH Past Medical History Medical History Alcohol dependence Chronic post-traumatic stress disorder (PTSD) GERD (gastroesophageal reflux disease) MDD (major depressive disorder), recurrent episode, moderate MDD (major depressive disorder), recurrent episode, severe Seizure disorder Social History Social History Housing: Homeless Do you presently have visiting nurse or other home services: No Patient Tobacco Use Status: Current everyday Tobacco user Tobacco use type: Cigarette Cigarettes Per Day: 1 Years Smoked: 30 e-Cigarette/Vaping Use: Never Used Second Hand Smoke Exposure: Yes Substance Use Type: Marijuana Advance Directives: No Advance Directives Information Provided: No service: No Sexual orientation: Straight/Heterosexual Physical Exam Vital Signs: Vital Signs: Last Vital Signs Temp 98.4 F 01/03/22 14:22 Pulse 80 01/03/22 14:22 Resp 18 01/03/22 14:22 BP 113/77 01/03/22 14:22 Pulse Ox 98 01/03/22 14:22 BMI result Body Mass Index 21.7 Appearance: Alert. Oriented X3. No acute distress. HEENT: normal external inspection CVS: Normal heart rate and rhythm. Pulses normal. Respiratory: No respiratory distress. speaks in complete sentences Skin: Skin warm and dry. Normal skin color. Normal skin turgor. No rashes. Extremities: normal inspection x4. Neuro: Oriented X 3. Grossly normal, nonfocal Course Course Course Narrative: 51-year-old male with history of seizures on Vimpat, lamotrigine, Topamax who presents to the ER for evaluation of his kidney function. He was here last week x2 with seizures and CORRINA. He was treated with IV fluids and sent home. He has an appointment coming up with his neurologist. He has no local PCP and would like his kidney levels drawn before he sees his neurologist. He offers no physical complaints. Reevaluation(s) Reevaluation #1: CORRINA resolved. Stable for d/c. MDM - Recheck/Abnormal Lab/Rx Lab Data Result diagrams: 01/03/22 15:07 Labs: Lab Results 01/03/22 Range/Units 15:07 Sodium 137 (135-145) mmol/L Potassium 3.8 (3.3-5.1) mmol/L Chloride 110 H (96-108) mmol/L Carbon Dioxide 20 L (22-29) mmol/L Anion Gap 11 L (12-20) BUN 22 H (9-16) mg/dL Creatinine 1.20 (0.5-1.4) mg/dL Estim Creat Clear Calc 75.5 Estimated GFR > 60 Random Glucose 101 (60-115) mg/dL Calcium 8.8 D (8.4-10.2) mg/dL Discharge Plan Discharge Clinical Impression: Seizure disorder Patient Disposition: Home, Self-Care Additional Instructions: Your lab workup today was unremarkable. Follow-up with your neurologist as scheduled. Continue to take all your medications as prescribed, it is important that you do not miss any doses. Prescriptions: No Action folic acid 1 mg Tablet 1 mg PO DAILY 30 Days Qty: 30 0RF escitalopram oxalate 10 mg Tablet 10 mg PO DAILY 30 Days Qty: 30 0RF thiamine mononitrate (vit B1) 100 mg Tablet 100 mg PO DAILY 30 Days Qty: 30 0RF trazodone 50 mg Tablet 50 mg PO BEDTIME PRN (Reason: Insomnia) 30 Days Qty: 30 0RF lamotrigine 200 mg tablet 200 mg PO BID 30 Days Qty: 60 0RF omeprazole 40 mg Capsule,Delayed Release(Dr/Ec) 40 mg PO DAILY 30 Days Qty: 30 0RF topiramate 200 mg tablet 200 mg PO BID 30 Days Qty: 60 0RF Vimpat 200 mg Tablet 200 mg PO BID 30 Days Qty: 60 0RF
[2022-01-03 15:26] LABS: Anion Gap 11 (12-20); Blood Urea Nitrogen 22 mg/dL (9-16); Calcium 8.8 mg/dL (8.4-10.2); Carbon Dioxide 20 mmol/L (22-29); Chloride 110 mmol/L (96-108); Creatinine Clr Calc Pharmacy 75.5; Estimated Glomerular Filt Rate > 60; Glucose Random 101 mg/dL (60-115); Potassium 3.8 mmol/L (3.3-5.1); Sodium 137 mmol/L (135-145)
== END 2022-01-03 15:43 | disposition home or self-care (01) ==
LOC: HO.ED 15:04
PROVIDERS: Physician Assistant; Emergency Provider Emergency Medicine
DX: G40.909 Epilepsy, unspecified, not intractable, without status epilepticus (principal); F17.200 Nicotine dependence, unspecified, uncomplicated; F12.90 Cannabis use, unspecified, uncomplicated
CPT/HCPCS: 36415; 80048; 99283